=== PATIENT | female | born 1930 | race Native Hawaiian/Other Pacific Islander ===

== ENCOUNTER 2018-07-28 22:22 | Emergency (ER) | payer OTHER ==
[~2018-07-28] VITALS: Ht 167.6 cm; Wt 68.0 kg
[2018-07-28 22:57] LABS: PLATELET COUNT 219 K/uL (152-353)
[2018-07-28 23:01] LABS: POTASSIUM 3.8 mmol/L (3.6-5.2)
[2018-07-28 23:39] VITALS: BP 107/75; TEMP 98.6
[2018-07-29] MEDS ORDERED: DIVA125C PO ×2 (03:46→04:05)
[2018-07-29] MEDS ORDERED: METO100T37 PO (03:48)
[2018-07-29] MEDS ORDERED: ENDOCET1 TA3 PO (03:49)
[2018-07-29] MEDS ORDERED: RISP0.25 PO (03:53)
[2018-07-29] MEDS ORDERED: LISI20TA11 PO (03:54)
[2018-07-29] MEDS ORDERED: LORA0.5T17 PO ×2 (03:55→04:01)
[2018-07-29] MEDS ORDERED: TYLENOL325 MG PO (03:57)
[2018-07-29] MEDS ORDERED: AMLODIPINE BESYLATE PO (04:08)
[2018-07-29] MEDS ORDERED: MULTIVITAMINS W PO (04:12)
[2018-07-29] MEDS ORDERED: [UNRECOGNIZED DRUG - CODE] PO (04:19)
[2018-07-29] MEDS ORDERED: ASCO500T18 PO (04:21)
[2018-07-29] MEDS ORDERED: D32000 UNIT PO (04:24)
[2018-07-29] MEDS ORDERED: CELEXA20 MG PO (04:25)
[2018-07-29] MEDS ORDERED: SIMV20TA2 PO (04:25)
[2018-07-29] MEDS ORDERED: CLON0.1D TD (04:28)
[2018-07-29] MEDS ORDERED: POT CHLORIDE10 MEQ PO (04:32)
[2018-07-29] MEDS ORDERED: BOOST PLUS PO (04:34)
[2018-07-29] MEDS ORDERED: [UNRECOGNIZED DRUG - OTHER] PO (04:38)
[2018-08-09] MEDS ORDERED: ESCI10TA PO (16:13)
[2018-08-09] MEDS ORDERED: LISI20TA11 PO (16:13)
[2018-08-09] MEDS ORDERED: CLON0.1T16 PO (16:13)
[2018-08-09] MEDS ORDERED: DONE5TAB PO (16:13)
[2018-08-09] MEDS ORDERED: 904272561 PO (16:13)
[2018-08-09] MEDS ORDERED: MEMA5TAB PO (16:13)
[2018-08-09] MEDS ORDERED: ZINC220C4 PO (16:13)
== END 2018-07-28 23:39 | disposition other institution (70) ==
LOC: ED 22:22
PROVIDERS: Internal Medicine
DX: I10 Essential (primary) hypertension (principal); E83.52 Hypercalcemia; D72.828 Other elevated white blood cell count; R93.8 Abnormal findings on diagnostic imaging of other specified body structures; R45.1 Restlessness and agitation; Z04.6 Encounter for general psychiatric examination, requested by authority
CPT/HCPCS: 36415; 80053; 82550; 84484; 85027; 93005; 99285

== ENCOUNTER 2019-05-19 15:59 | Emergency (ER) | payer OTHER ==
[~2019-05-19] VITALS: Ht 152.4 cm; Wt 57.2 kg
[~2019-05-19 15:59] MED LIST: 904272561 PO; AMLODIPINE BESYLATE PO; ASCO500T18 PO; BOOST PLUS PO; CELEXA20 MG PO; CLON0.1D TD; CLON0.1T16 PO; D32000 UNIT PO; DIVA125C PO; DONE5TAB PO; ENDOCET1 TA3 PO; ESCI10TA PO; LISI20TA11 PO; LORA0.5T17 PO; MEMA5TAB PO; METO100T37 PO; MULTIVITAMINS W PO; POT CHLORIDE10 MEQ PO; RISP0.25 PO; SIMV20TA2 PO; TYLENOL325 MG PO; ZINC220C4 PO; [UNRECOGNIZED DRUG - CODE] PO; [UNRECOGNIZED DRUG - OTHER] PO
[2019-05-19 16:41] LABS: PLATELET COUNT 375 K/uL (152-353)
[2019-05-19 16:52] LABS: POTASSIUM 3.9 mmol/L (3.6-5.2)
[2019-05-19 17:30] VITALS: BP 138/57; TEMP 98.8
[2019-05-19] MEDS ORDERED: GNP MELATONIN3 MG PO (17:49)
[2019-05-19] MEDS ORDERED: MAGIC CUP PO (17:51)
[2019-05-19] MEDS ORDERED: TYLENOL325 MG PO (17:52)
[2019-05-19] MEDS ORDERED: ALBUSOL INH (17:54)
== END 2019-05-19 17:30 | disposition other institution (70) ==
LOC: ED 15:59
PROVIDERS: Student in an Organized Health Care Education/Training Program
DX: F03.91 Unspecified dementia, unspecified severity, with behavioral disturbance (principal); Z04.6 Encounter for general psychiatric examination, requested by authority
CPT/HCPCS: 80053; 85027; 93005; 99285